=== PATIENT | male | born 1990 | race Caucasian/White ===

== ENCOUNTER 2024-08-30 18:32 | Emergency (ER) | payer BC, SELFPAY ==
[2024-08-30 18:38] VITALS: BP 138/94
[2024-08-30 18:59] LABS: % Basophils 0.4 % (0-2); % Eosinophils 3.2 % (0-6); % Immature Granulocytes 0.2 % (0-0.5); % Lymphocytes 38.7 % (20.5-51.1); % Monocytes 7.8 % (1.7-9.3); % Neutrophils 49.7 % (42.2-75.2); Absolute Eosinophils 0.3 10^3/uL (0-0.7); Absolute Lymphocytes 3.3 10^3/uL (1.2-3.4); Absolute Monocytes 0.7 10^3/uL (0.1-0.6); Absolute Neutrophils 4.3 10^3/uL (1.4-6.5); Hematocrit 42.1 % (39.0-52.0); Hemoglobin 14.8 g/dL (13.0-18.0); Mean Corp Hgb Conc. 35.2 g/dL (33.0-37.0); Mean Corpuscular Hgb 29.7 pg (27.0-31.0); Mean Corpuscular Volume 84.4 fL (80.0-94.0); Mean Platelet Volume 10.5 fL (7.4-10.4); Nucleated Red Blood Cells % 0 % (-); Platelet Count 251 10^3/uL (130-400); Red Blood Cell Count 4.99 10^6/uL (4.70-6.10); Red Cell Dist. Width 13.1 % (11.5-14.5); White Blood Cell Count 8.6 10^3/uL (4.8-10.8)
[2024-08-30 19:16] LABS: ALT (SGPT) 24 U/L (0-50); AST (SGOT) 29 U/L (17-59); Albumin 4.9 g/dl (3.5-5.0); Alkaline Phosphatase 53 U/L (38-126); Blood Urea Nitrogen 21 mg/dl (9-20); Calcium 9.8 mg/dl (8.4-10.2); Carbon Dioxide 24 mmol/L (22-30); Chloride 103 mmol/L (98-107); Glucose 96 mg/dl (70-99); Potassium 4.3 mmol/L (3.5-5.1); Sodium 141 mmol/L (135-145); Total Bilirubin 0.3 mg/dl (0.2-1.3); Total Protein 7.6 g/dl (6.3-8.2); eGFR > 60.00
[2024-08-30 19:26] LABS: Troponin I < 0.012 ng/ml
[2024-08-30 21:26] VITALS: BP 119/82
[2024-08-30 21:27] VITALS: BMI 32.5
[2024-08-30 21:30] VITALS: BP 129/92
[2024-08-30 22:00] VITALS: BP 116/80
[2024-08-30 22:30] VITALS: BP 138/86
--- NOTE | 2024-08-30 22:39 | ED.GENMED ---
History of Present Illness
General
Chief Complaint: Chest Pain
Source: patient
Exam Limitations: none
Time Seen by Provider: 08/30/24 21:14
History of Present Illness
History of Present Illness:
This is a 33 year old male that comes in with c/o chest pain. states that he has had chest pain on and off for 2 months. States that his just tired of his chest feeling tight. States that he did see his PCP last week for this. Then the other night
he awoke with right sided pain and he started to get concerned. States that he is occasionally SOB. States that he has a stressful job, 2 children at home and he has not stopped with his social activities. Denies any fever, chills, SOB at this
time, abd pain, nausea, vomiting, diarrhea, headache, dizziness, urinary burning.
Past History
Past History
ED Past Medical History: Other (fracture nose); Negative Asthma, HTN, Hypercholesterolemia or NIDDM
ED Past Surgical History: Orthopedic (ACL repair)
Social History
Tobacco: Smoker
Alcohol: Occasional
Personal:
Living: with family
Employment: Employed
Review of Systems
Review of Systems
All Other Systems: ROS reviewed and negative except as documented in HPI and ROS
Constitutional: Reports no symptoms; Denies fever or chills
EENT: Reports no symptoms
Respiratory: Reports no symptoms; Denies cough or trouble breathing
Cardiac: Reports chest pain
ABD/GI: Reports no symptoms; Denies abdominal pain, nausea, vomiting or diarrhea
: Reports no symptoms; Denies dysuria, frequency or urgency
Musculoskeletal: Reports no symptoms
Skin: Reports no symptoms
Neurological: Reports no symptoms; Denies dizzy or headache
Psychiatric: Reports no symptoms
Phy Exam
General Physical Exam
General Presentation: well appearing and no apparent distress
General age: appears stated age
General Skin: warm and dry
General Habitus: normal
General Mental: alert
General Hydration: appears well hydrated
ENT Exam
ENT Exam: TM's normal, pharynx normal and neck supple
Eye Exam
Eye Exam: EOMI
Cardiovascular Exam
Cardiovascular Exam: regular rate/rhythm, no edema, no murmur and normal peripheral pulses
Pulmonary Exam
Pulmonary Exam: lungs clear, no respiratory distress, no rales, chest non tender, no crackles, no rhonchi, no wheezing and no cough
Gastrointestinal Exam
Gastrointestinal Exam: normal bowel sounds, non tender, soft, no organomegaly, no pulsatile mass and non distended
Musculoskeletal Exam
Musculoskeletal Exam: full ROM and no edema
Skin Exam
Skin Exam: normal color, warm/dry, no rash and no petechia
Psychiatric Exam
Psychiatric Exam: normal mood/affect
Scores
Heart Score for Chest Pain Patients
STEMI patient?: No
History: Slightly or Non-Suspicious
ECG: Normal
Age: </= 45 years
Risk Factors: No Risk Factors
Troponin: </= Normal Limit
Heart Score for Chest Pain Patients: 0
Heart Score Risk: 2.5% MACE over next 6 weeks
Course
Orders/Labs/Results
Orders:
Orders
08/30/24 18:33
Electrocardiogram (*1) Urgent
Reason for Study: Chest Pain
EKG- Treatment ONCE
08/30/24 18:51
Complete Blood Count/With Diff Urgent
Comprehensive Metabolic Panel Urgent
Troponin I Urgent
08/30/24 22:38
Pantoprazole [Protonix IV] 40 mg IV NOW STA
Sucralfate Suspension [Carafate Suspension] 1 gm PO NOW STA
CR Chest - 2 Views Urgent
Comment:
Reason For Exam: Chest pain
08/30/24 22:39
Electrocardiogram (*1) Urgent
Reason for Study: Chest Pain
Other Reason for Exam: repeat with Troponin
EKG- Treatment ONCE
08/30/24 22:53
Troponin I Urgent
Abnormal Lab Results
08/30/24
18:51
MPV 10.5 H fL
(7.4-10.4)
Absolute Monos (auto) 0.7 H 10^3/uL
(0.1-0.6)
BUN 21 H mg/dl
(9-20)
08/30/24 18:51
08/30/24 18:51
Very slight dehydration, otherwise normal labs, Troponin <0.012
second Troponin <0.012
Vital Signs
Initial and Last Documented VS:
Initial Vital Signs
Temp Pulse Resp BP Pulse Ox
98.1 F 73 20 138/94 96
08/30/24 18:38 08/30/24 18:38 08/30/24 18:38 08/30/24 18:38 08/30/24 18:38
Last Documented Vital Signs
Temp Pulse Resp BP Pulse Ox
98.1 F 64 19 122/92 97
08/30/24 18:38 08/30/24 23:00 08/30/24 22:30 08/30/24 23:00 08/30/24 23:00
MDM/Problems Addressed
Differential Diagnosis Includes:
GERD, Anxiety, Coronary syndrome
MDM/Problems Addressed:
This is a 33 year old male that comes in with c/o chest pain for the past 2 months. States that this comes and goes.
Will check labs. Chest x-ray, and medicate with Protonix and Carafate.
Repeat ECG: rate 66, NSR, normal axis. Normal QRS, negative for ischemia
Back into see patient. Explained that his second troponin is normal along with his chest x-ray. Told that patient was feeling better after the medication. Explained that this may all be related to Reflux. Will place patient on Protonix 40mg daily
and will also give Carafate for 10 days. Patient to decrease his caffeine intake. Follow up with the family doctor. Return with any concerns.
Chronic conditions affecting care:
NA
Acute Exacerbation and/or Progression of Chronic Illness:
NA
*Radiology
Radiology exam reviewed: preliminary read by ED provider (Chest- No cardiopulmonary process)
*Pulse Oximetry
Patient hypoxic: no
*EKG
Interpreted by ED Provider?: Yes
Heart Rate: 72
Rate: normal
Rhythm: sinus
[place]: normal axis
Interval: normal interval
QRS Pattern: normal QRS
Ischemia: no ischemia
*C[employer] Wheel [employer] Interpretation
Rate: normal
Heart Rate: 66
Rhythm: sinus
*Critical Care Note
Total Time (30-74mins, 75-104mins- exclusive of procedures): Not Applicable
ED Attending Note
-
Portions of this chart may have been created with voice recognition software.� Occasional wrong word or��sound alike� substitutions may have occurred due to the inherent limitations of voice recognition software.
Discharge Plan
Departure
Patient Disposition: Home (Routine Discharge)
Date of Disposition: 08/30/24
Time of Disposition: 23:38
Patient with high blood pressure during this ER visit?: Yes
Condition: Good
Covid-19: Not Applicable
Discharge Problem:
Chest pain due to GERD
Instructions: Acid reflux and GERD in adults, Chest Pain PCP Follow Up, BLOOD PRESSURE
Prescriptions:
New
pantoprazole [Protonix] 40 mg tablet,delayed release (DR/EC)
40 mg PO DAILY Qty: 30 0RF
sucralfate [Carafate] 1 gram tablet
1 g PO ACHS Qty: 40 0RF
Rx Instructions:
Dissolve in 2tsp water and drink. take 30min-1 hour before meals and HS
Referrals:
Flako Torres MD [Family Provider] - Follow up in 2-3 days
Activity Restrictions/Additional Instructions:
As discussed, your blood work is normal along with your chest x-ray. This may be all related to reflux. Please decrease your caffeine intake as this causes worsening of your reflux. You have had 2 prescription sent to your Pharmacy. The first is
Protonix which you were given here. Please take this daily. The second is for Carafate that you will dissolve in 2 tsp of water and drink 30 min to 1 hour before each meal and again at bedtime. Follow up with the family doctor for recheck. IF YOU
HAVE INCREASED OR CHANGING PAIN, OR YOU HAVE ANY OTHER CONCERNS PLEASE RETURN TO THE EMERGENCY ROOM.
Interventions
Interventions:
*Risk Screen - Suicide Last Done: 08/30/24 18:38
*General Assessment Last Done: 08/30/24 21:25
*Neglect/Abuse Screening Last Done: 08/30/24 21:25
ED- Cardiac Assessment Last Done: 08/30/24 21:29
Discharge Date and Time
Print Language: GERMAN
[2024-08-30] MEDS: CARAFATE SUSPENSION 1 GM PO (22:59)
[2024-08-30 23:00] VITALS: BP 122/92
[2024-08-30] MEDS: PROTONIX IV 40 MG IV (23:00)
[2024-08-30 23:25] LABS: Troponin I < 0.012 ng/ml
[2024-08-31 01:01] VITALS: BP 120/90
== END 2024-08-31 01:03 | disposition home or self-care (01) ==
LOC: EMR 18:32
PROVIDERS: Clinical Nurse Specialist Family Health; Emergency Medicine; EMERGENCY PHYSICIAN Student in an Organized Health Care Education/Training Program; FAMILY PHYSICIAN Family Medicine
DX: R07.89 Other chest pain (principal); K21.9 Gastro-esophageal reflux disease without esophagitis; F17.200 Nicotine dependence, unspecified, uncomplicated; Z79.899 Other long term (current) drug therapy
CPT/HCPCS: 99283; 96374; 71046; 80053; 84484; 85025; 93005